=== PATIENT | male | born 1955 | race Caucasian/White ===

== ENCOUNTER 2021-07-04 07:15 | Day surgery (SDC) | payer MEDICARE, OTHER ==
[2021-06-30 11:04] LABS: BASOPHILS % (AUTO) 0.8 % (0-1); EOSINOPHILS # (AUTO) 0.1 X10'3 (0-0.9); LYMPHOCYTES # (AUTO) 1.1 X10'3 (1.1-4.8); LYMPHOCYTES % (AUTO) 25.4 % (21-51); MEAN CORPUSCULAR HEMOGLOBIN 33.3 PG (27.0-31.0); MEAN CORPUSCULAR HGB CONC 34.8 g/dL (33.0-36.5); MEAN CORPUSCULAR VOLUME 95.6 FL (78-98); MEAN PLATELET VOLUME 8.4 FL (7.4-10.4); MONOCYTES # (AUTO) 0.5 X10'3 (0-0.9); MONOCYTES % (AUTO) 11.1 % (2-12); NEUTROPHILS # (AUTO) 2.7 X10'3 (1.8-7.7); NEUTROPHILS % (AUTO) 60.7 % (42-75); PRE OP HEMATOCRIT 43.8 % (42.0-52.0); PRE OP HEMOGLOBIN 15.3 g/dL (14.0-17.9); PRE OP PLATELET COUNT 230 X10'3 (140-440); RED BLOOD COUNT 4.58 X10'6 (4.70-6.10); RED CELL DISTRIBUTION WIDTH 12.6 % (11.5-14.5)
[2021-06-30 11:17] LABS: PRE OP INR 1.1 INR; PRE OP PROTIME 10.9 SECONDS (9.0-12.0)
[2021-06-30 11:21] LABS: ALBUMIN 3.9 G/DL (3.4-5.0); ALBUMIN/GLOBULIN RATIO 1.2 (1.1-1.5); ALKALINE PHOSPHATASE 58 IU/L (46-116); BLOOD UREA NITROGEN 22 MG/DL (7-18); BUN/CREATININE RATIO 13.9 (5.4-32.0); CALCIUM 9.1 MG/DL (8.5-10.1); CHLORIDE 106 MMOL/L (99-107); CREATININE 1.58 MG/DL (0.60-1.10); PRE OP ALT 35 U/L (30-65); PRE OP ANION GAP 6 (8-16); PRE OP AST 23 U/L (10-37); PRE OP BILIRUB, TOTAL 0.6 MG/DL (0.0-1.0); PRE OP GLUCOSE 85 MG/DL (70-104); PRE OP POTASSIUM 3.7 MMOL/L (3.4-5.1); PRE OP SODIUM 142 MMOL/L (135-145); TOTAL CARBON DIOXIDE 29.9 MMOL/L (24-32); TOTAL PROTEIN 7.2 G/DL (6.4-8.2); eGFR 44 ML/MIN
[2021-07-04] VITALS (34 sets, daily range): BP systolic 93–181; BP diastolic 55–99
[~2021-07-04] VITALS: Ht 175.3 cm; Wt 81.1 kg
[~2021-07-04 07:15] MED LIST: ACET-2319 PO; ACET-3068 PO; CART1TAB4 PO; CYCL-1 PO; DESO60CR TOP; DIPH-423 PO; DOXY-1 PO; ECON15CR4 TOP; FLUO20CA39 PO; IMIQ1CRE10 TOP; LOVA20TA2 PO; MELO-100 PO; MET0.75G TP; MUPI22OI30 TP; OLME-7 PO; UBID50TA3 PO; cefazolin/dext.iso 2gm/100ml IV ONE; cefazolin/dext.iso 2gm/50ml 50 ML IV ONE; famotidine 20mg tablet PO ONE; ringers solution, lacted 1,000 ML IV SCH
[2021-07-04] MEDS ORDERED: ringers solution, lacted 1,000 ML IV SCH (07:35)
[2021-07-04] MEDS ORDERED: ondansetron/PF 4mg/2ml inj IV PRN ×2 (07:35→12:25)
[2021-07-04] MEDS ORDERED: proCHLORperazine 10 MG/2 ml inj IV PRN ×2 (07:35→12:25)
[2021-07-04] MEDS ORDERED: morphine 4 MG/ML inj SYRINge IV PRN (07:35)
[2021-07-04] MEDS ORDERED: morphine 2 MG/ML inj. syringe IV PRN (07:35)
[2021-07-04] MEDS ORDERED: meperidine/PF 25mg/ml syringe IV PRN ×3 (07:35)
[2021-07-04] MEDS ORDERED: fentaNYL/PF 50MCG/1 ML 2ML syringe ONE (10:32)
[2021-07-04] MEDS ORDERED: MIDAZolam 1 MG/ML 5ML VIAL ONE (10:33)
[2021-07-04] MEDS ORDERED: propofol inj 20 ML IV ONE (10:45)
--- NOTE | 2021-07-04 12:18 | NUR ---
Received from [facility] , accompanied by Anesthesiologist SHERON and report given by Anesthesiolgist. PATIENT WITH 20G PIV IN RIGHT HAND RUNNING LR AT [address]. [address] [place] CATH IRRIGATION PRESENT- PINK URINE IN ATRIUM OF CASS[place] CATHETER. SCDS DONNED. SCOTT MELENDEZ ON. DENIES PAIN. T9 SENSATION FROM SPINAL ANESTHESIA. Addendum: 07/04/21 at 1306 by Jourdan Jaimes RN, RN Amended: Links added.
[2021-07-04] MEDS ORDERED: cyclobenzaprine 10mg tablet PO PRN (12:20)
[2021-07-04] MEDS ORDERED: mag hydrox/Alum hydrox/simeth 30ml oral suspension PO PRN (12:25)
[2021-07-04] MEDS ORDERED: LIDOcaine 2% 10ml TOPICAL JELLY (Urojet) TP ONE (12:25)
[2021-07-04] MEDS ORDERED: acetaminophen 325mg tablet PO PRN (12:25)
[2021-07-04] MEDS ORDERED: oxybutynin 5mg tablet PO PRN (12:25)
[2021-07-04] MEDS ORDERED: HYDROcodone/acetaminophen 10/325mg tab PO PRN ×2 (12:25→13:00)
[2021-07-04] MEDS ORDERED: glycopyrrolate 0.2mg/ml inj IM ONE (13:15)
[2021-07-04] MEDS ORDERED: glycopyrrolate 0.2mg/ml inj IV ONE (13:30)
--- NOTE | 2021-07-04 15:16 | NUR ---
CALLED FOR BP MEDS. ORDERS RECEIVED. Addendum: 07/04/21 at 1526 by Jourdan Jaimes RN, RN Amended: Links added.
[2021-07-04] MEDS ORDERED: labetalol 20mg/4ml (5mg/ml) syringe IV PRN (15:20)
--- NOTE | 2021-07-04 16:18 | NUR ---
Report called to receiving nurse. Transferred via SURGICAL BED WITH Belongings . Special Issues communicated to receiving nurse BONNIE HOLT .YANET AWARE PATIENT HAS ARRIVED. MODEL BUILDER PRESENT TO SET PATIENT UP WITH VS. Addendum: 07/04/21 at 1624 by Jourdan Jaimes RN, RN Amended: Links added.
--- NOTE | 2021-07-04 17:18 | NUR ---
Sent message to pharmacy for patients Ancef and IVF
[2021-07-04] MEDS: ceFAZolin inj. 1,000 MG in dextrose 5%-water 50ml 50 ML IV SCH (17:42)
[2021-07-04] MEDS: potassium cl 20mEq in 1/2 NS 1,000 ML IV SCH ×2 (17:42→20:25)
--- NOTE | 2021-07-04 18:15 | NUR ---
Problems reprioritized. Patient report given, questions answered & plan of care reviewed with Devin HOLT.
--- NOTE | 2021-07-04 18:30 | NUR ---
Patient in room [facility]. I have received report from BONNIE HOLT and had the opportunity to ask questions and assume patient care.
[2021-07-04] MEDS: mupirocin 2% ointment 22GM TP SCH (20:00)
[2021-07-04] MEDS: DESOXIMETASONE TOP SCH (20:00)
[2021-07-04] MEDS: docusate sod 100mg capsule PO SCH (20:36)
[2021-07-04] MEDS ORDERED: HYDROchlorothiazide 12.5mg capsule PO SCH (21:00)
[2021-07-04] MEDS ORDERED: FLUoxetine 10mg capsule PO SCH (21:00)
[2021-07-04] MEDS ORDERED: losartan 50mg tablet PO SCH (21:00)
[2021-07-04] MEDS ORDERED: atorvastatin 10mg tablet PO SCH (21:00)
[2021-07-04] MEDS ORDERED: diphenhydrAMINE 25mg capsule PO SCH (21:00)
[2021-07-05] VITALS: BP 127/80
[2021-07-05] MEDS: potassium cl 20mEq in 1/2 NS 1,000 ML IV SCH (01:14)
[2021-07-05] MEDS: ceFAZolin inj. 1,000 MG in dextrose 5%-water 50ml 50 ML IV SCH ×2 (01:14→08:07)
[2021-07-05 05:55] LABS: ALBUMIN 3.2 G/DL (3.4-5.0); ANION GAP 8 (8-16); BLOOD UREA NITROGEN 19 MG/DL (7-18); BUN/CREATININE RATIO 12.3 (5.4-32.0); CALCIUM 8.4 MG/DL (8.5-10.1); CHLORIDE 106 MMOL/L (99-107); CREATININE 1.54 MG/DL (0.60-1.10); GLUCOSE 91 MG/DL (70-104); POTASSIUM 3.9 MMOL/L (3.5-5.1); SODIUM 142 MMOL/L (135-145); TOTAL CARBON DIOXIDE 28.1 MMOL/L (24-32); eGFR 45 ML/MIN
[2021-07-05 06:17] LABS: BASOPHILS % (AUTO) 0.2 % (0-1); EOSINOPHILS # (AUTO) 0.1 X10'3 (0-0.9); HEMATOCRIT 39.4 % (42.0-52.0); HEMOGLOBIN 13.8 g/dl (14.0-17.9); LYMPHOCYTES # (AUTO) 1.1 X10'3 (1.1-4.8); LYMPHOCYTES % (AUTO) 13.7 % (21-51); MEAN CORPUSCULAR HEMOGLOBIN 33.2 PG (27.0-31.0); MEAN CORPUSCULAR VOLUME 94.7 FL (78-98); MEAN PLATELET VOLUME 9.1 FL (7.4-10.4); MONOCYTES # (AUTO) 0.7 X10'3 (0-0.9); MONOCYTES % (AUTO) 8.3 % (2-12); NEUTROPHILS % (AUTO) 76.8 % (42-75); PLATELET COUNT 194 X10'3 (140-440); RED BLOOD COUNT 4.16 X10'6 (4.70-6.10); RED CELL DISTRIBUTION WIDTH 12.2 % (11.5-14.5); WHITE BLOOD COUNT 7.9 X10'3 (4.5-11.0)
--- NOTE | 2021-07-05 06:30 | NUR ---
Problems reprioritized. Patient report given, questions answered & plan of care reviewed with JOSÉ LUIS HOLT.
--- NOTE | 2021-07-05 06:34 | NUR ---
Patient in room [facility]. I have received report from Devin HOLT and had the opportunity to ask questions and assume patient care.
[2021-07-05] MEDS ORDERED: pantoprazole 40mg Tablet.DR PO SCH (07:30)
[2021-07-05] MEDS: DESOXIMETASONE TOP SCH (08:00)
[2021-07-05] MEDS: mupirocin 2% ointment 22GM TP SCH (08:00)
[2021-07-05] MEDS ORDERED: metroNIDAZOLE 0.75% 45gm topical cream TP SCH (08:00)
[2021-07-05] MEDS: docusate sod 100mg capsule PO SCH (08:03)
[2021-07-05] MEDS ORDERED: DOCU-148 PO (08:57)
[2021-07-05 10:08] VITALS: BP 123/68
[2021-07-05 11:46] VITALS: BP 112/66
--- NOTE | 2021-07-05 13:42 | NUR ---
patient seen by Dr Larose is for discharge [pending ambulation and urine flow. patient ambulating without complication. urine chelsea coloured no clots observed. All DC instructions given to patient. patient given supplies for catheter care. . patient Dc home via private car with family in stable condition
[2021-07-05] MEDS ORDERED: lactobacillus rhamnosus 10,000 MMU CELLS/CAPSULE PO SCH (20:00)
== END 2021-07-05 12:23 | disposition home or self-care (01) ==
LOC: PAS 07:15 → SUR 3N 16:38 → PAS 07-05 12:23
PROVIDERS: ATTEND Urology
DX: N40.1 Benign prostatic hyperplasia with lower urinary tract symptoms (principal); N13.8 Other obstructive and reflux uropathy; I12.9 Hypertensive chronic kidney disease with stage 1 through stage 4 chronic kidney disease, or unspecified chronic kidney disease; N18.2 Chronic kidney disease, stage 2 (mild); F41.9 Anxiety disorder, unspecified; Z79.899 Other long term (current) drug therapy; Z98.890 Other specified postprocedural states; Z88.8 Allergy status to other drugs, medicaments and biological substances; M19.90 Unspecified osteoarthritis, unspecified site; Z20.822 Contact with and (suspected) exposure to COVID-19; Z79.01 Long term (current) use of anticoagulants
CPT/HCPCS: 36415; 52601; 80048; 80053; 82948; 85025; 85610; 85730; 86885; 86900; 86901; 87081; 93005; J0690; J2250; J2704; J3010; J7060; Q0163; U0003; U0005; Z7506; Z7508; Z7512; 88305; A4346; A4355; A4615; G0378; J3480; J3490; J7120

== ENCOUNTER 2024-10-17 09:43 | Outpatient (CLI) | payer MEDICARE, OTHER ==
[~2024-10-17 09:43] MED LIST changes: +DOCU-148 PO; +OLME-29 PO; -OLME-7 PO; -cefazolin/dext.iso 2gm/100ml IV ONE; -cefazolin/dext.iso 2gm/50ml 50 ML IV ONE; -famotidine 20mg tablet PO ONE; -ringers solution, lacted 1,000 ML IV SCH
== END 2024-10-17 23:59 | disposition home or self-care (01) ==
LOC: MRI02 09:43
PROVIDERS: ATTEND Physician Assistant Surgical
DX: M17.0 Bilateral primary osteoarthritis of knee (principal); M22.42 Chondromalacia patellae, left knee; M22.41 Chondromalacia patellae, right knee; M25.562 Pain in left knee; M25.561 Pain in right knee
CPT/HCPCS: 73721

== ENCOUNTER 2025-03-09 10:46 | Outpatient (CLI) | payer MEDICARE, OTHER ==
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
== END 2025-03-09 23:59 | disposition home or self-care (01) ==
LOC: RAD 10:46
PROVIDERS: ATTEND Otolaryngology
DX: T17.908A Unspecified foreign body in respiratory tract, part unspecified causing other injury, initial encounter (principal); N18.9 Chronic kidney disease, unspecified; Z98.890 Other specified postprocedural states; R13.10 Dysphagia, unspecified; X58.XXXA Exposure to other specified factors, initial encounter; Y93.89 Activity, other specified; Y92.89 Other specified places as the place of occurrence of the external cause; Y99.8 Other external cause status
CPT/HCPCS: 74230